=== PATIENT | female | born 1955 | race Caucasian/White ===

== ENCOUNTER 2023-12-19 03:50 | Emergency (ER) | payer BC, MEDICARE, OTHER ==
[2023-12-19] MEDS ORDERED: Aspirin Chewable 81 MG TAB ONE (04:46)
[2023-12-19] MEDS ORDERED: Acetaminophen 500 MG TAB ONE (04:46)
[2023-12-19] MEDS ORDERED: Nitroglycerin 0.4 MG TAB 1 EACH ONE (04:47)
[2023-12-19 04:58] LABS: #Basophils 0.1 10x3/uL (0.0-0.2); #Eosinphils 0.1 10x3/uL (0.0-0.5); #Monocytes 0.5 10x3/uL (0.0-1.1); #Neutrophils 5.7 10x3/uL (1.5-8.4); %Basophils 0.6 % (0.0-2.0); %Eosinophils 1.7 % (0.0-6.0); %Lymphocytes 20.4 % (18.0-47.0); %Neutrophils 71.1 % (40.0-75.0); Hematocrit 38.2 % (34.9-44.5); Hemoglobin 13.3 g/dL (12.0-15.5); Mean Corpuscular HGB CONC 34.8 g/dL (32.0-36.0); Mean Corpuscular Hemoglobin 33.1 pg (27.0-33.0); Platelet Count 209 10x3/uL (150-450); RBC Distribution Width 11.9 % (11.5-14.5); Red Blood Cell (RBC) Count 4.02 10x6/uL (3.90-5.03)
[2023-12-19 05:12] LABS: PTT 26.1 sec (22.0-33.0); Prothrombin Time 11.2 sec (9.5-12.1)
[2023-12-19 05:14] LABS: ALT (SGPT) 17 U/L (8-55); AST (SGOT) 19 U/L (5-34); Albumin 4.1 g/dL (3.4-4.8); Alkaline Phosphatase 54 U/L (40-110); Anion Gap 13 mmol/L (10-20); BUN (Urea Nitrogen) 19 mg/dL (9.8-20.1); Bilirubin, Total 0.4 mg/dL (0.2-1.2); Calc. Creatinine Clearance 0 mL/min (70-130); Calcium 9.9 mg/dL (7.8-10.44); Carbon Dioxide 27 mmol/L (23-31); Chloride 102 mmol/L (98-107); Estimated GFR 82; Globulin 3.1 g/dL (2.4-3.5); Glucose 107 mg/dL (80-115); Lipase 24 U/L (8-78); Magnesium 1.9 mg/dL (1.6-2.6); Potassium 3.5 mmol/L (3.5-5.1); Protein, Total 7.2 g/dL (5.8-8.1); Sodium 138 mmol/L (136-145)
[2023-12-19 05:20] LABS: Troponin I Less than 0.010 ng/mL (< 0.028)
[2023-12-19 07:29] LABS: Troponin I Less than 0.010 ng/mL (< 0.028)
[2023-12-19] MEDS ORDERED: Iopamidol 370 76% 100 ML VIAL ONE (09:35)
== END 2023-12-19 08:10 | disposition home or self-care (01) ==
LOC: CSHERS 03:50
DX: R07.82 Intercostal pain (principal); I10 Essential (primary) hypertension; E78.5 Hyperlipidemia, unspecified; Z79.899 Other long term (current) drug therapy; Z79.82 Long term (current) use of aspirin
CPT/HCPCS: 36415; 71045; 71275; 80053; 83690; 83735; 83880; 84443; 84484; 85025; 85610; 85730; 93005; Q9967